=== PATIENT | female | born 1965 | race Two or more races ===

== ENCOUNTER 2017-03-14 08:40 | Emergency (ER) | payer OTHER, SELFPAY ==
[~2017-03-14] VITALS: Ht 160 cm; Wt 68.0 kg
[2017-03-14] MEDS ORDERED: SODIUM CHLORIDE 0.9% 1,000 ML IV ONE (08:55)
[2017-03-14] MEDS ORDERED: SODIUM CHLORIDE 0.9% 1,000ML IVBOLUS ONE (09:00)
[2017-03-14] MEDS ORDERED: ASPIRIN 81 MG TABLET CHEW PO ONE (09:00)
[2017-03-14] MEDS ORDERED: LORazepam 2 MG/ML, 1ML IVPush ONE (09:00)
[2017-03-14] MEDS ORDERED: SODIUM CHLORIDE FLUSH 10ML SYR IVF ONE (09:00)
[2017-03-14] MEDS ORDERED: ONDANSETRON 2MG/ML, 2ML IVPush ONE (09:00)
[2017-03-14] MEDS ORDERED: ONDANSETRON 2MG/ML, 2ML ONE (09:18)
[2017-03-14] MEDS ORDERED: ASPIRIN 81 MG TABLET CHEW ONE (09:18)
[2017-03-14] MEDS ORDERED: LORazepam 2 MG/ML, 1ML ONE (09:19)
[2017-03-14 09:24] LABS: HEMATOCRIT 46.5 % (34.6-47.8); WHITE BLOOD COUNT 4.8 x10^3/uL (3.4-10)
[2017-03-14 09:36] LABS: ASPARTATE AMINO TRANSFERASE 26 U/L (15-37); BLOOD UREA NITROGEN 10 mg/dL (7-18)
[2017-03-14 09:44] LABS: IS PT STATUS REG ER OR PRE ER? YES
[2017-03-14] MEDS ORDERED: KETOROLAC 30 MG/1 ML ONE (10:54)
[2017-03-14] MEDS ORDERED: KETOROLAC 30 MG/1 ML IVPush ONE (11:00)
[2017-03-14 11:39] VITALS: BP 92/43
== END 2017-03-14 12:00 | disposition home or self-care (01) ==
LOC: ED 10:10
DX: R07.89 Other chest pain (principal); F41.1 Generalized anxiety disorder; R06.4 Hyperventilation
CPT/HCPCS: 36415; 70450; 71010; 80053; 84484; 85025; 93005; 96361; 96374; 96375; 99285; J1885; J2060; J2405; J7030